=== PATIENT | male | born 1960 | race American Indian/Alaskan Native ===

== ENCOUNTER 2018-04-21 11:31 | Emergency (ER) | payer OTHER ==
[2018-04-21 11:31] VITALS: BMI 26.7
[2018-04-21 11:42] VITALS: BP 118/83; TEMP 97.4
--- NOTE | 2018-04-21 13:44 | RAD ---
Date of service: 04/21/2018 PROCEDURE: Radiographs of the Left Shoulder HISTORY: shoulder pain COMPARISON: No prior. FINDINGS: BONES: No acute fracture or destructive bony lesion identified. JOINTS: Acromioclavicular joint appears aligned adequately but is widened to 7 mm. Potentially reflecting element of separation. Clinically correlate. SOFT TISSUES: Normal. OTHER FINDINGS: None. IMPRESSION: Potential left AC joint separation. Further clinical correlation is advised. Weightbearing radiographs of the acromioclavicular joint may be helpful. Glenohumeral joint appears intact without dislocation or subluxation. No fracture identified.
--- NOTE | 2018-04-21 14:17 | ED PDOC ---
Upper Extremity Pain/Injury Time Seen by Provider: 04/21/18 12:42 Chief Complaint (Nursing): Upper Extremity Problem/Injury Chief Complaint (Provider): Left Shoulder AC Separation History Per: Patient History/Exam Limitations: no limitations Onset/Duration Of Symptoms: Days (>365 days; pt is a chronic pain patient) Current Symptoms Are (Timing): Still Present Quality: Aching, "Pain" Severity: Mild Pain Scale Rating Of: 3 (Pt presents to the ED looking for a series of Xrays ordered by his primary painter plate; pt complaint is limited to left shoulder pain on this visit; pt denies any other illnesses and indicates that his shoulder has been bothering him for more than one year; pt is taking narcotic medications for his chronic pain issues) Past Medical History Reviewed: Historical Data, Nursing Documentation, Vital Signs Vital Signs: Last Vital Signs Temp 97.4 F L 04/21/18 11:36 Pulse 100 H 04/21/18 11:36 Resp 16 04/21/18 11:36 BP 118/83 04/21/18 11:36 Pulse Ox 100 04/21/18 11:36 - Medical History PMH: HTN Other PMH: chronic pain - Family History Family History: States: Unknown Family Hx - Immunization History Hx Tetanus Toxoid Vaccination: No Hx Influenza Vaccination: No Hx Pneumococcal Vaccination: No - Allergies Allergies/Adverse Reactions: Allergies Allergy/AdvReac Type Severity Reaction Status Date / Time No Known Allergies Allergy Verified 04/21/18 11:35 Review of Systems ROS Statement: Except As Marked, All Systems Reviewed And Found Negative Musculoskeletal: Positive for: Shoulder Pain Physical Exam - Reviewed Nursing Documentation Reviewed: Yes Vital Signs Reviewed: Yes - Physical Exam Appears: Positive for: Well, Non-toxic, No Acute Distress Head Exam: Positive for: ATRAUMATIC, NORMAL INSPECTION Neck: Positive for: Normal, Painless ROM, Supple. Negative for: Decreased ROM Cardiovascular/Chest: Positive for: Regular Rate, Rhythm Respiratory: Positive for: Normal Breath Sounds Pulses-Carotid (L): 2+ Pulses-Carotid (R): 2+ Pulses-Radial (L): 2+ Pulses-Radial (R): 2+ Back: Positive for: Normal Inspection Extremity: Positive for: Tenderness. Negative for: Normal ROM, Deformity (pt has limited ROM on forward flexion of the left shoulder as well as abduction of the same; the scarf sign is negative, Hawks sign positive; empty can test positive and shoulder impingement test positive) - ECG O2 Sat by Pulse Oximetry: 100 Medical Decision Making Medical Decision Making: ED tx consist of apap 650 and ibu 600; Left shoulder Xray with finding below: FINDINGS: BONES: No acute fracture or destructive bony lesion identified. JOINTS: Acromioclavicular joint appears aligned adequately but is widened to 7 mm. Potentially reflecting element of separation. Clinically correlate. SOFT TISSUES: Normal. OTHER FINDINGS: None. IMPRESSION: Potential left AC joint separation. Further clinical correlation is advised. Weightbearing radiographs of the acromioclavicular joint may be helpful. Glenohumeral joint appears intact without dislocation or subluxation. No fracture identified. Disposition - Clinical Impression Clinical Impression: Shoulder injury, Separation of AC joint - Patient ED Disposition Is Patient to be Admitted: No Doctor Will See Patient In The: Office Counseled Patient/Family Regarding: Diagnosis, Need For Followup, Rx Given - Disposition Disposition: Routine/Home Disposition Time: 14:21 Condition: STABLE Additional Instructions: pt provided with shoulder sling and ordered to rest shoulder and follwo up with his painter plate in 24-48 hours Instructions: Shoulder Forms: [employer] (Macedonian)
--- NOTE | 2018-04-21 14:19 | ED PDOC ---
Upper Extremity Pain/Injury Time Seen by Provider: 04/21/18 12:42 Chief Complaint (Nursing): Upper Extremity Problem/Injury Chief Complaint (Provider): Upper Extremity Problem/Injury Past Medical History Vital Signs: Last Vital Signs Temp 97.4 F L 04/21/18 11:36 Pulse 100 H 04/21/18 11:36 Resp 16 04/21/18 11:36 BP 118/83 04/21/18 11:36 Pulse Ox 100 04/21/18 11:36 - Medical History PMH: HTN - Immunization History Hx Tetanus Toxoid Vaccination: No Hx Influenza Vaccination: No Hx Pneumococcal Vaccination: No - Allergies Allergies/Adverse Reactions: Allergies Allergy/AdvReac Type Severity Reaction Status Date / Time No Known Allergies Allergy Verified 04/21/18 11:35 Review of Systems ROS Statement: Except As Marked, All Systems Reviewed And Found Negative Musculoskeletal: Positive for: Shoulder Pain (left) - ECG O2 Sat by Pulse Oximetry: 100 (RA) Disposition - Disposition
[2018-04-21 14:27] VITALS: PULSE 85; RESP 18
[2018-04-21 14:28] VITALS: O2SAT 100
== END 2018-04-21 14:27 | disposition home or self-care (01) ==
LOC: H.ER 11:31
DX: M24.411 Recurrent dislocation, right shoulder (principal); G89.29 Other chronic pain; I10 Essential (primary) hypertension

== ENCOUNTER 2018-09-04 20:41 | Emergency (ER) | payer OTHER ==
[2018-09-04 20:41] VITALS: BMI 26.7
[2018-09-04 20:57] VITALS: RESP 18; TEMP 97.9; O2SAT 99
[2018-09-04 21:54] LABS: HEMOGLOBIN 12.6 g/dL (12.0-18.0); MEAN CELL VOLUME 82.3 fl (80.0-94.0); MEAN CORPUSCULAR HEMOGLOBIN 26.5 pg (27.0-31.0); MEAN CORPUSCULAR HGB CONC 32.1 g/dL (33.0-37.0); RBC 4.77 Mil/uL (4.40-5.90); RED CELL DISTRIBUTION WIDTH 13.4 % (11.5-14.5); WHITE BLOOD COUNT 4.3 K/uL (4.8-10.8)
[2018-09-04 22:05] LABS: BLOOD UREA NITROGEN 14 mg/dl (9-20); GFR NON-AFRICAN AMERICAN > 60
[2018-09-04 22:56] VITALS: BP 160/94
--- NOTE | 2018-09-05 03:32 | ED PDOC ---
HPI: Hypertension/Hypotension Time Seen by Provider: 09/04/18 21:02 Chief Complaint (Nursing): High Blood Pressure Chief Complaint (Provider): High Blood Pressure History Per: Patient History/Exam Limitations: no limitations Onset/Duration Of Symptoms: Hrs Current Symptoms Are (Timing): Still Present Additional Complaint(s): 58 y/o male with a PMHx of DM, HTN and glaucoma presents to the ED for palpitations. Patient states he has trouble with his vision due to his glaucoma and is legally blind. Patient notes he was in [place] when someone offered him an alcoholic beverage which he took. However, patient was not sure what it was and became anxious and started having palpitations and a pressure- like sensation in his chest. Patient's friend advised him to check is blood pressure that read as highly elevated. Patient notes he did not take his blood pressure medications today and does not remember the names of any of his blood pressure medications. Patient states that his friend offered him to take his (his friend's) blood pressure medications and took them. Patient does not known the names of the blood pressure medications he took. Patient reports he is currently fine but feels anxious. PMD: no provider Past Medical History Reviewed: Historical Data, Nursing Documentation, Vital Signs Vital Signs: Last Vital Signs Temp 97.9 F 09/04/18 20:50 Pulse 82 09/04/18 20:50 Resp 18 09/04/18 20:50 BP 160/94 H 09/04/18 22:55 Pulse Ox 99 09/04/18 20:50 Primary Care Provider: [facility] - Medical History PMH: HTN - Surgical History Surgical History: No Surg Hx - Family History Family History: States: Unknown Family Hx - Immunization History Hx Tetanus Toxoid Vaccination: No Hx Influenza Vaccination: No Hx Pneumococcal Vaccination: No - Allergies Allergies/Adverse Reactions: Allergies Allergy/AdvReac Type Severity Reaction Status Date / Time No Known Allergies Allergy Verified 09/04/18 20:50 Review of Systems ROS Statement: Except As Marked, All Systems Reviewed And Found Negative Psych: Positive for: Anxiety Physical Exam - Reviewed Nursing Documentation Reviewed: Yes Vital Signs Reviewed: Yes - Physical Exam Appears: Positive for: No Acute Distress Head Exam: Positive for: ATRAUMATIC, NORMOCEPHALIC Skin: Positive for: Normal Color, Warm, Dry Eye Exam: Positive for: Other (glaucoma to both eyes) ENT: Positive for: Normal ENT Inspection Neck: Positive for: Normal, Painless ROM Cardiovascular/Chest: Positive for: Regular Rate, Rhythm. Negative for: Murmur Respiratory: Positive for: Normal Breath Sounds. Negative for: Respiratory Distress Gastrointestinal/Abdominal: Positive for: Normal Exam, Soft. Negative for: Tenderness Extremity: Positive for: Normal ROM. Negative for: Deformity Neurological/Psych: Positive for: Awake, Alert, Oriented (x3). Negative for: Motor/Sensory Deficits - Laboratory Results Result Diagrams: 09/04/18 21:46 09/04/18 21:46 Lab Results: Troponin I < 0.0120 ng/mL (0.00-0.120) 09/04/18 21:46 - ECG ECG Rhythm: Positive for: Normal QRS, Normal ST Segment, Sinus Rhythm. Negative for: ST/T Changes Rate: 86 O2 Sat by Pulse Oximetry: 99 (RA) Pulse Ox Interpretation: Normal Medical Decision Making Medical Decision Making: Time: 2118 A/P: 58 y/o male presenting with likely anxiety, resolved HTN and non-cardiac chest pain. -- BMP -- Troponin I -- CBC -- Glucose, POC Time: 2254 -- Labs demonstrate no clinically significant abnormalities. Patient is stable upon discharge home. Patient informed to only take medications prescribed to him. Return parameters discussed Scribe Attestation: Documented by Asmita Mccullough, acting as a scribe Storm Berkowitz MD. Provider Scribe Attestation: All medical record entries made by the Scribe were at my direction and personally dictated by me. I have reviewed the chart and agree that the record accurately reflects my personal performance of the history, physical exam, medical decision making, and the department course for this patient. I have also personally directed, reviewed, and agree with the discharge instructions and disposition. Disposition - Clinical Impression Clinical Impression: High blood pressure - Patient ED Disposition Is Patient to be Admitted: No Counseled Patient/Family Regarding: Studies Performed, Diagnosis, Need For Followup - Disposition Referrals: [facility] [Outside] Disposition: Routine/Home Disposition Time: 22:55 Condition: GOOD Instructions: High Blood Pressure in Adults Forms: [employer] (Algerian)
[2018-09-05 04:46] VITALS: PULSE 86
== END 2018-09-04 22:55 | disposition home or self-care (01) ==
LOC: H.ER 20:41
DX: F41.9 Anxiety disorder, unspecified (principal); I10 Essential (primary) hypertension; E11.9 Type 2 diabetes mellitus without complications; H40.9 Unspecified glaucoma; H54.8 Legal blindness, as defined in USA

== ENCOUNTER 2018-09-25 14:37 | Emergency (ER) | payer SELFPAY ==
[2018-09-25 14:37] VITALS: BMI 26.7
[2018-09-25 14:47] VITALS: O2SAT 99
[2018-09-25] MEDS ORDERED: Sodium Chloride 0.9% 1,000 ML IV STA (15:35)
[2018-09-25 16:00] LABS: BASO % 0.3 % (0.0-2.0); EOS % 0.8 % (0.0-4.0); HEMOGLOBIN 12.9 g/dL (12.0-18.0); LYMPH # 1.1 K/uL (1.0-4.3); LYMPH % 19.4 % (20.0-40.0); MEAN CELL VOLUME 82.6 fl (80.0-94.0); MEAN CORPUSCULAR HGB CONC 32.7 g/dL (33.0-37.0); MEAN PLATELET VOLUME 9.8 fl (7.2-11.7); MONO # 0.4 K/uL (0.0-0.8); MONO % 6.3 % (0.0-10.0); NEUT # 4.2 K/uL (1.8-7.0); NEUT % 73.2 % (50.0-75.0); NRBC % 0.1 % (0.0-0.0); RBC 4.77 Mil/uL (4.40-5.90); RED CELL DISTRIBUTION WIDTH 13.9 % (11.5-14.5); WHITE BLOOD COUNT 5.7 K/uL (4.8-10.8)
--- NOTE | 2018-09-25 16:00 | ED PDOC ---
Syncope/Near Syncope/Dizziness Time Seen by Provider: 09/25/18 15:18 Chief Complaint (Nursing): Weakness/Neurological Deficit Chief Complaint (Provider): Weakness/Neurological Deficit History Per: Patient History/Exam Limitations: no limitations Onset/Duration Of Symptoms: Hrs Additional Complaint(s): 58 y/o male presents to the ED complaining of right sided headache. Patient states he feels generalize body weakness and photophobia. He reports he woke up this feeling fine this morning then this afternoon he went to the intermediate and suddenly felt dizziness. Patient asked for food and felt "power cut out" in his body and suddenly wasnt able to stand without falling. Patient states he is co mpliant with medications and follows up. Patient denies any other symptoms at this time. PMD: none provided Past Medical History Reviewed: Historical Data, Nursing Documentation, Vital Signs Vital Signs: Last Vital Signs Temp 97.9 F 09/25/18 14:41 Pulse 74 09/25/18 14:41 Resp 18 09/25/18 14:41 BP 146/93 H 09/25/18 14:41 Pulse Ox 99 09/25/18 14:41 Primary Care Provider: Non [facility] Provider, - Medical History PMH: HTN - Family History Family History: States: Unknown Family Hx - Immunization History Hx Tetanus Toxoid Vaccination: No Hx Influenza Vaccination: No Hx Pneumococcal Vaccination: No - Allergies Allergies/Adverse Reactions: Allergies Allergy/AdvReac Type Severity Reaction Status Date / Time No Known Allergies Allergy Verified 09/04/18 20:50 Review of Systems ROS Statement: Except As Marked, All Systems Reviewed And Found Negative Constitutional: Positive for: Weakness Eyes: Positive for: Other (Photophobia) Neurological: Positive for: Headache (right side), Dizziness Physical Exam - Reviewed Nursing Documentation Reviewed: Yes Vital Signs Reviewed: Yes - Physical Exam Appears: Positive for: Well (Mild diaphoretic.), Non-toxic, No Acute Distress Head Exam: Positive for: ATRAUMATIC, NORMAL INSPECTION, NORMOCEPHALIC Skin: Positive for: Normal Color, Warm, Dry Eye Exam: Positive for: Normal appearance (Cover eyes with his shirt.), EOMI, PERRL, Other (Sluggish pupils reflex bilaterally. History of "glaucoma". Photophobia on right eye.) ENT: Positive for: Normal ENT Inspection Neck: Positive for: Normal, Painless ROM, Supple Cardiovascular/Chest: Positive for: Regular Rate, Rhythm. Negative for: Murmur Respiratory: Positive for: Normal Breath Sounds. Negative for: Wheezing Gastrointestinal/Abdominal: Positive for: Normal Exam, Soft. Negative for: Tenderness Back: Positive for: Normal Inspection. Negative for: L CVA Tenderness, R CVA Tenderness Extremity: Positive for: Normal ROM Neurological/Psych: Positive for: Awake, Alert, Normal Tone, Symmetric/Intact Strength, Oriented (x3). Negative for: Motor/Sensory Deficits - Laboratory Results Result Diagrams: 09/25/18 15:25 09/25/18 15:25 - ECG O2 Sat by Pulse Oximetry: 99 Medical Decision Making Medical Decision Making: Time:1530 Impression: Workup with sudden weakness, dizziness, and right sided headache. Plan: -CT head -CMP -Troponin -CBC -Chest x-ray -Sodium chloride -[id number] Time: 1638 --CXR FINDINGS: LUNGS: No active pulmonary disease. PLEURA: No significant pleural effusion identified, no pneumothorax apparent. CARDIOVASCULAR: No atherosclerotic calcification present Normal. OSSEOUS STRUCTURES: No significant abnormalities. VISUALIZED UPPER ABDOMEN: Normal. OTHER FINDINGS: None. IMPRESSION: No active disease. Time: 1641 --CT head FINDINGS: HEMORRHAGE: No intracranial hemorrhage. BRAIN: No mass effect or edema. Cortical atrophy and chronic microvascular ischemic change. VENTRICLES: Unremarkable. No hydrocephalus. CALVARIUM: Unremarkable. PARANASAL SINUSES: Unremarkable as visualized. No significant inflammatory changes. MASTOID AIR CELLS: Unremarkable as visualized. No inflammatory changes. OTHER FINDINGS: None. IMPRESSION: No acute intracranial abnormalities. No significant findings to account for the clinical presentation. Time: 1700 --Labs reviewed: (-) significant clinical abnormality. Upon provider reevaluation, patient is medically stable, reports improvement in symptoms, and requires no further treatment in the ED at this time. Findings and plan were discussed with patient who verbalizes understanding. Patient will be discharged home and recommended to follow up with PCP. Counseling was provided and all questions were answered regarding diagnosis. There is agreement to discharge plan. Return precautions discussed. Clinical Impression: headache; generalized muscle weakness Scribe Attestation: Documented by Zina Quiroz and Mónica Robbins, acting as scribes for Dr. Alva Valdez. Provider Scribe Attestation: All medical record entries made by the Scribe were at my direction and personally dictated by me. I have reviewed the chart and agree that the record accurately reflects my personal performance of the history, physical exam, medical decision making, and the department course for this patient. I have also personally directed, reviewed, and agree with the discharge instructions and di sposition. Disposition - Clinical Impression Clinical Impression: Generalized muscle weakness, Headache - Patient ED Disposition Is Patient to be Admitted: No Counseled Patient/Family Regarding: Studies Performed, Diagnosis, Need For Followup - Disposition Disposition: Routine/Home Disposition Time: 17:00 Condition: IMPROVED Additional Instructions: Take Tylenol or Motrin for pain and headache. Follow up with primary medical doctor in one to two weeks. Return to the emergency department if symptoms worsen or if new symptoms develop. Instructions: Weakness (ED) Forms: [employer] (Ukrainian) Print Language: TURKISH
[2018-09-25 16:09] LABS: ALB/GLOB RATIO 1.4 (1.0-2.1); ALBUMIN 4.9 g/dL (3.5-5.0); ALT/SGPT 38 U/L (21-72); AST/SGOT 28 U/L (17-59); BLOOD UREA NITROGEN 15 mg/dl (9-20); CALCIUM 10.2 mg/dL (8.4-10.2); GFR NON-AFRICAN AMERICAN 56
--- NOTE | 2018-09-25 16:42 | RAD ---
Date of service: 09/25/2018 HISTORY: possible admission COMPARISON: No prior. FINDINGS: LUNGS: No active pulmonary disease. PLEURA: No significant pleural effusion identified, no pneumothorax apparent. CARDIOVASCULAR: No atherosclerotic calcification present Normal. OSSEOUS STRUCTURES: No significant abnormalities. VISUALIZED UPPER ABDOMEN: Normal. OTHER FINDINGS: None. IMPRESSION: No active disease.
--- NOTE | 2018-09-25 16:44 | CT ---
Date of service: 09/25/2018 PROCEDURE: CT HEAD WITHOUT CONTRAST. HISTORY: right sided headache, dizziness, and photophobia COMPARISON: None available. TECHNIQUE: Axial computed tomography images were obtained through the head/brain without intravenous contrast. Supplemental Coronal and Sagittal projections created and reviewed. Radiation dose: Total exam DLP = 1182.29 mGy-cm. This CT exam was performed using one or more of the following dose reduction techniques: Automated exposure control, adjustment of the mA and/or kV according to patient size, and/or use of iterative reconstruction technique. FINDINGS: HEMORRHAGE: No intracranial hemorrhage. BRAIN: No mass effect or edema. Cortical atrophy and chronic microvascular ischemic change. VENTRICLES: Unremarkable. No hydrocephalus. CALVARIUM: Unremarkable. PARANASAL SINUSES: Unremarkable as visualized. No significant inflammatory changes. MASTOID AIR CELLS: Unremarkable as visualized. No inflammatory changes. OTHER FINDINGS: None. IMPRESSION: No acute intracranial abnormalities. No significant findings to account for the clinical presentation.
[2018-09-25 18:35] VITALS: BP 149/81; PULSE 76; RESP 19; TEMP 97.8
== END 2018-09-25 18:46 | disposition home or self-care (01) ==
LOC: H.ER 14:37
DX: M62.81 Muscle weakness (generalized) (principal); R51 Headache
CPT/HCPCS: 70450; 71045; 80053; 82948; 84484; 85025; 96361; 96374; 99284; J2765; J7030